=== PATIENT | female | born 1985 | race Caucasian/White ===

== ENCOUNTER → 2017-08-12 16:52 | Outpatient (CLI) | payer BC, SELFPAY ==
--- NOTE | 2017-08-12 16:38 | LES_PTH ---
PATIENT: ESTEFANIA MAHARAJ LOC: [facility] U#:[id number] AGE/SX: 39/F ROOM: RE08/12/[address]: Dr. 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 Negative for malignancy. SJ:toy 08/16/17 MICROSCOPIC DESCRIPTION Slides are reviewed. GROSS DESCRIPTION Received in fixative is one container labeled with the patient's name and designated left ear. The specimen consists of a piece of boone-white skin measuring 0.3 x 0.3 x 0.1 cm. The specimen is totally submitted in one cassette. / SJ:rg 08/15/17 TC:5 [facility]: [id number]
== END ==
PROVIDERS: Visit Provider Otolaryngology
DX: D48.5 Neoplasm of uncertain behavior of skin (principal)
CPT/HCPCS: 88305

== ENCOUNTER → 2019-04-09 15:30 | Outpatient (CLI) | payer BC, SELFPAY ==
--- NOTE | 2019-04-09 15:30 | MASS_PTH ---
PATIENT: ESTEFANIA MAHARAJ LOC: [facility] U#:[id number] AGE/SX: 39/F ROOM: RE04/09/[address]: Dr. Charlie Rogers MD : 1985 BED: DIS: SPEC #: [id number] RECD: 04/09/19 17:00 STATUS: ABUNDIO CATY #: [id number] NED: 04/09/19 15:[address]: Charlie Rogers DEPT: SURGICAL PATHOLOGY RECD BY: Laxmi Nolan Tissues: Ear, NOS Procedures: Surgery Specimen Level IV HEADER OPERATION: Biopsy PRE-OP DIAGNOSIS: Left ear mass TISSUE SUBMITTED: Left ear mass MICROSCOPIC DIAGNOSIS Left ear mass, biopsy: Consistent with squamous papilloma. Negative for malignancy. SJ:toy 04/11/19 COMMENT Please make reference to previous specimen ([id number]), left ear lesion, biopsy with diagnosis of focal changes suggestive of squamous papilloma and hyperkeratosis. MICROSCOPIC DESCRIPTION Slides are reviewed. GROSS DESCRIPTION Received in fixative is one container labeled with the patient's name and designated left ear mass. The specimen consists of one irregular fragment of light boone soft tissue that measures 0.2 x 0.2 x 0.1 cm. The specimen is totally submitted in one cassette. / AM:toy 04/10/19 TC:1 [facility]: [id number]
== END ==
PROVIDERS: Referring Provider Otolaryngology; Visit Provider Otolaryngology
DX: R22.0 Localized swelling, mass and lump, head (principal)
CPT/HCPCS: 88305

== ENCOUNTER → 2020-12-04 10:29 | Outpatient (CLI) | payer BC, SELFPAY | PROVIDERS: Referring Provider Physician Assistant; Visit Provider Physician Assistant | DX: U07.1 COVID-19 (principal) | CPT/HCPCS: 87635; U0005; U0003 ==

== ENCOUNTER → 2024-12-10 | Outpatient (CLI) | payer BC, SELFPAY ==
--- OUTSIDE RECORDS SUMMARY | 2024-12-12 21:22 | XMS RPT_ITS | CCD ---
Author Organization [facility] Care Team Providers Care [employer] Name Role Phone SYLVIA ASHRAF MD Admitting Unavailable LATOUF, SYLVIA MISHRA Attending Unavailable LATOUSanam, SYLVIA MISHRA Primary Care Unavailable LATOUF, SYLVIA [...] UNKNOWN Consulting Unavailable PROVIDER, UNKNOWN Consulting Unavailable Charlie Rogers Referring Unavailabl Charlie Sanches Attending Unavailabl e Care Physician, No Primary Primary Care Unava ilable Care Physician, No Primary Primary Care Unava ilable Charlie Rogers Referring Unavailabl e Charlie Rogers Attending Unavailabl e Allergies Allergy Classification Reported Allergen(s) Allergy Type Date of Onset Reaction(s) Facility (1 source) Clindamycin Drug Allergy 12-04-2020 [facility] Rep[facility] Problems Problem Classification Problem Date Documented Date Episodic/Chronic Disorders of lipid metabolism (2 sources) Pure hypercholesterolemia , unspecified; Translations: [Pure hypercholesterolemia , unspecified] Onset: 12-31-2019 Essential hypertension (1 source) Essential (primary) hypertension; Translations: [Essential (primary) hypertension] Onset: 01-02-2020 Chronic Other nutritional; endocrine; and metabolic disorders (1 source) Lipoprotein deficiency; Translations: [Lipoprotein deficiency] Onset: 12-31-2019 Chronic Thyroid disorders (2 sources) Hypothyroidism, unspecified; Translations: [Hypothyroidism, unspecified] Onset: 12-31-2019 Chronic Unclassified (1 source) Cranial cerebrospinal fluid leak, spontaneous; Translations: [Cranial cerebrospinal fluid leak, spontaneous] Onset: 12-10-2024 Results Test Name Value Interpretation Reference Range Facil ity Cerebral Spinal Fluid Cultur nilesh 12-11-2024 [facility] CSF RHINORRHEA RESULTS CALLED TO NURSE 12/11/24 1221 VS. Staphylococcus species Amount Growth Rare Gram positive graeme Gram positive graeme Normal [facility] Comment on above: Performed By: #### M 100.2300, M100.1999 #### [facility] [address] [place], [address] Gram Stainon 12-11-2024 GS CSF RHINORRHEA Centrifuged Specimen? Culture performed on centrifuged specimen Gram Stain No organisms seen Very Rare White Blood Cells Normal [facility] Comment on above: Performed By: #### M 100.2300, M100.1999 #### [facility] [address] [place], [address] Sinus/Facial Boneon 12-11-19 Sinus/Facial Bone [facility] [address] [place] [address] Sinus/Facial Bone MR#: [id number] Acct: [id number] Name: ESTEFANIA MAHARAJ Rep #: [id number] : 1985 F 39 From: Chencho davis MD PCP: Care Physician,No Primary Status: REG CLI Study: Sinus/Facial Bone Date of Exam: 12/10/24 Exam# [id number] Ordering Dr: Charlie Rogers MD PROCEDURE: SINUS/FACIAL BONE 12/10/2024 REASON FOR EXAM: CRANIAL CEREBROSPINAL FLUID LEAK, SPONTANEOUS TECHNIQUE: Procedure Code: CTSI Modality: CT Procedure: SINUS/FACIAL BONE Coronal and Sagittal reconstruction series were provided. One or more dose reduction techniques were used (e.g., Automated exposure control, adjustment of the mA and/or kV according to patient size, use of iterative reconstruction technique). RADIATION DOSE SUMMARY: CTDlvol: 33.06 mGy DLP: 833.85 mGycm COMPARISON: None FINDINGS: Frontal: Unremarkable. Ethmoid: Unremarkable Sphenoid: Air-fluid level is seen in the left sphenoid sinus. Maxillary: Unremarkable Turbinates: Unremarkable Nasal Septum: Nasal septal deviation towards the right side of the midline. Mastoids/Middle Ears: Unremarkable CT/Sinus/Facial Bone IMPRESSION: Air-fluid level seen in the left sphenoid sinus. Reading Location: [place] [address] CC: Dr. 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: Signed Normal [facility] Encounters Encounter Date Encounter Type Care Provider Facility Start: 12-10-2024 ambulatory Charlie Rogers Fa cility:[facility] Start: 01-02-2020 Patient encounter procedure SYLVIA MISHRA [facility] Start: 12-31-2019 Encounter for genera l adult medical examination without abnormal findings [facility] Start: 12-31-2019 Patient encounter procedure SYLVIA MISHRA [facility] Start: 11-08-2019 Patient encounter procedure SYLVIA MISHRA [facility] Payers Date Payer Category Payer Self-pay 2014 Unknown [id number] 1985 Unknown [id number] 2.16.84 [id number] 1985 Unknown [id number] 2.16.84 [id number] 1985 Unknown [id number] 2.16.84 [id number] 1985 Unknown [id number] 2.16.84 [id number] Unknown [id number] 2.16.8 [id number] Unknown [id number] 2.16.8 [id number] Summary Purpose Family History No Family History Records FoundNo Family History Records Found Advance Directives No Advanced Directives Records FoundNo Advanced Directives Records Found Additional Source Comments INFORMATION SOURCE (unrecogn ized section and content) DATE CREATED AUTHOR 01/02/[address] [facility] DATE CREATED AUTHOR AUTHOR'S ORGANIZ ATDAWN 12/12/2024 [facility] FOR RECORDS PERTAINING TO PATIENTS WHO ARE [...] BE BASED ON THE PRIMARY CLINICAL RECORDS. [employer] [facility]. provides no warranty or guarantee of the accuracy or completeness of information in this document.
== END | disposition home or self-care (01) ==
LOC: LAB 12-12 15:45
PROVIDERS: Referring Provider Otolaryngology; Visit Provider Otolaryngology
DX: G96.00 Cerebrospinal fluid leak, unspecified (principal)
CPT/HCPCS: 87070; 87205

== ENCOUNTER → 2024-12-10 | Outpatient (CLI) | payer BC, SELFPAY ==
--- NOTE | 2024-12-10 12:00 | CT_ITS ---
PROCEDURE: SINUS/FACIAL BONE 12/10/2024 REASON FOR EXAM: CRANIAL CEREBROSPINAL FLUID LEAK, SPONTANEOUS TECHNIQUE: Procedure Code: CTSI Modality: CT Procedure: SINUS/FACIAL BONE Coronal and Sagittal reconstruction series were provided. One or more dose reduction techniques were used (e.g., Automated exposure control, adjustment of the mA and/or kV according to patient size, use of iterative reconstruction technique). RADIATION DOSE SUMMARY: CTDlvol: 33.06 mGy DLP: 833.85 mGycm COMPARISON: None FINDINGS: Frontal: Unremarkable. Ethmoid: Unremarkable Sphenoid: Air-fluid level is seen in the left sphenoid sinus. Maxillary: Unremarkable Turbinates: Unremarkable Nasal Septum: Nasal septal deviation towards the right side of the midline. Mastoids/Middle Ears: Unremarkable CT/Sinus/Facial Bone IMPRESSION: Air-fluid level seen in the left sphenoid sinus. Reading Location: [place] [address]
--- OUTSIDE RECORDS SUMMARY | 2024-12-10 21:52 | XMS RPT_ITS | CCD ---
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 Role Phone SYLVIA ASHRAF MD Admitting Unavailable LATOUF, SYLVIA MISHRA Attending Unavailable LATOUF, SYLVIA MISHRA Primary Care Unavailable LATOUF, SYLVIA MISHRA Consulting Unavailable PROVIDER, UNKNOWN Consulting Unavailable PROVIDER, UNKNOWN Consulting Unavailable PROVIDER, UNKNOWN Consulting Unavailable LATOUF, SYLVIA MISHRA Admitting Unavailable LATOUF, SYLVIA MISHRA Attending Unavailable LATOUF, SYLVIA MISHRA Primary Care Unavailable LATOUF, SYLVIA MISHRA Consulting Unavailable PROVIDER, UNKNOWN Consulting Unavailable PROVIDER, UNKNOWN Consulting Unavailable PROVIDER, UNKNOWN Consulting Unavailable LATOUF, SYLVIA MISHRA Admitting Unavailable LATOUF, SYLVIA MISHRA Attending Unavailable LATOUF, SYLVIA MISHRA Primary Care Unavailable LATOUF, SYLVIA MISHRA Consulting Unavailable PROVIDER, UNKNOWN Consulting Unavailable PROVIDER, UNKNOWN Consulting Unavailable PROVIDER, UNKNOWN Consulting Unavailable LATOUF, SYLVIA MISHRA Admitting Unavailable LATOUF, SYLVIA MISHRA Attending Unavailable LATOUF, SYLVIA MISHRA Primary Care Unavailable LATOUF, SYLVIA MISHRA Consulting Unavailable PROVIDER, UNKNOWN Consulting Unavailable PROVIDER, UNKNOWN Consulting Unavailable PROVIDER, UNKNOWN Consulting Unavailable Problems Problem Classification Problem Date Documented Da te Episodic/Chronic Disorders of lipid metabolism (2 sources) Pure hypercholesterolemi a, unspecified; Translations: [Pure hypercholesterolemi a, unspecified] Onset: 12-31-2019 Essential hypertension (1 source) Essential (primary) hypertension; Translations: [Essential (primary) hypertension] Onset: 01-02-2020 Chronic Other nutritional; endocrine; and metabolic disorders (1 source) Lipoprotein deficiency; Translations: [Lipoprotein deficiency] Onset: 12-31-2019 Chronic Thyroid disorders (2 sources) Hypothyroidism, unspecified; Translations: [Hypothyroidism, unspecified] Onset: 12-31-2019 Chronic Results Test Name Value Interpretation Reference Range Facil ity COVID 19, ANDREY WC(RT COLLECT )on 12-04-2020 SARS-CoV-2 (COVID-19) RNA ANDREY+probe Ql (Unsp spec) Detected Normal Not Detect [facility] Comment on above: Order Comment: Reason for Exam: covid sx Result Comment: Norm al Reference Range: Not Detected Method:(RT-PCR) real-time reverse transcriptase PCR Luminex NELLI Instrument *The Food and Drug Administration (FDA) has issued an Emergency Use Authorization (EAU) for the NELLI SARS-CoV-2 Assay for the rapid detection of the virus that causes COVID-19. This test has been validated, but the FDAs independent review of this validation is pending. *Negative results do not preclude infection and should not be used as the sole basis for treatment or patient management. Optimum specimen types and timing for peak viral levels during infections caused by SARS-CoV-2 have not been determined. Collection of multiple specimens from the same patient may be necessary to detect the virus. The possibility of a false negative result should be considered if the patient has clinical presentation or has had recent exposure. Performed By: #### L [id number] #### [facility] [address] [place], [place], [address] Urgent Care Visit Reporton 0 12-04-2020 Urgent Care Visit Report [facility] [address] [place], [place] [address] OFFICE VISIT Date of Service: 12/04/20 MR#: [id number] Acct: [id number] Name: ESTEFANIA MAHARAJ Rep #: [id number] : 1985 Provider: PANCHO dunham Age/Sex: 35/F Location: [facility] Status: Signed Intake Vital Signs 12/04/20 08:41 Height 5 ft 10.5 in Weight: 247 lb BMI 34.9 BP 126/86 H Blood Pressure Location Lt brachial Position Sitting Respiration 15 Pulse 78 Pulse Source Monitor Temp 96.7 F L Temp Source Temporal Pulse Oximetry (%) 98 Oxygen Delivery Method room air Intake Visit Reasons: COUGH, RUNNY NOSE,XP 2 COVID,SORE THROAT Allergies clindamycin Allergy (Intermediate, Verified 12/04/20 08:43) rash Medications acetaminophen 325 mg capsule 325 mg PO ONCE PRN 12/04/20 [History Confirmed 12/04/20] atenolol 50 mg tablet 50 mg PO DAILY 12/04/20 [History Confirmed 12/04/20] levothyroxine 88 mcg tablet 88 mcg PO DAILY 12/04/20 [History Confirmed 12/04/20] [facility] Medical History (Updated 12/04/20 @ 09:03 by Yusuf DELEON, PA) Encounter for screening for COVID-19 Surgical History (Updated 12/04/20 @ 08:44 by Jennifer Marina RN) H/O tubal ligation Family History (Updated 12/04/20 @ 08:44 by Jennifer Marina RN) Other Heart disease HPI HPI Details: ESTEFANIA MAHARAJ, is a 35 F who presents to the office today for COVID-19 screening. 2-day history of chills, cough, myalgias, headache, sore throat, runny nose. Previously received COVID-19 vaccine series. Non-smoker. Positive exposure to daughter's boyfriend who was diagnosed with COVID-19. No blhk-fmb-bopdpha products taken to assist with symptoms. No other associated symptoms and no other alleviating/aggravating factors. ROS Const Constitutional: No other (As above) Exam Const General: cooperative, healthy appearing, comfortable and no acute distress Nutritional Appearance: well nourished Orientation: alert, awake and oriented x3 HENMT Head: normal to inspection Ears: hearing grossly normal bilaterally, external ears normal, TM's normal bilaterally and EAC's normal Nose: external nose normal, nares normal, septum normal and nasal discharge clear Face and sinus: normal facial exam, sinuses nontender and face symmetric Mouth: oral mucosae normal, lip normal, tongue normal and oropharynx normal Teeth and gingiva: dentition normal and gingiva normal Throat: posterior oropharynx normal, tonsils normal, uvula midline and no postnasal drainage Eyes General: appearance normal, both eyes and all related structures Neck Neck: normal visual inspection, full ROM, no lymphadenopathy, no meningeal signs and supple Neck mass: No Thyroid: thyroid normal Lymphatic: no lymphadenopathy noted Chest Chest palpation inspection: normal inspection of the chest Resp Effort Inspection: normal respiratory effort, able to speak in complete sentences, symmetric chest movement and cough Quality of cough: wet (Nonproductive in office today) Auscultation: Bilateral: Clear to Auscultation Cardio Palpation: normal PMI Rate: regular rate Rhythm: regular rhythm Heart Sounds: S1 normal, S2 normal, no gallops, no murmurs and no rubs Pulses: radial pulses present GI Inspection: normal to inspection Palpation: soft and no hepatosplenomegaly Skin General: no rashes or lesions noted Neuro General: patient alert, patient awake, patient oriented x3 and gait normal Cognition: normal cognition Speech: speech normal Gait: normal gait Motor: muscle tone normal throughout Sensory Exam: no sensory deficits noted Extrem General: normal to inspection Psych Appearance: grossly normal Mental Status: mental status grossly normal Mood: congruent mood Affect: normal affect Speech and Movement: speech and movement normal Attitude: cooperative Thought Process: normal Thought Content: normal Judgment: judgment good Coding Level of Care Code Off vis,new,level 3 Diagnoses Encounter for screening for COVID-19 Z11.52 Assessment and Plan Assessment and Plan (1) Encounter for screening for COVID-19: Status: Acute Orders: Orders: COVID 19, PCR [facility](RT COLLECT) Today Z11.52 Plan - Yusuf Clements PA, PA: Nasopharyngeal swab for COVID-19 obtained for send out. Supportive measures as reviewed in office today. Follow-up with PCP in 7 to 10 days should symptoms not improve, ED sooner should symptoms only worsen or any other concerns develop. Patient states acknowledging understanding all the above. This note was generated with Minka dictation software. It may contain incorrect words, spelling, and punctuation that were not noted in checking the note before signing. 12/04/20902 Date Yusuf Clements (more content not included)... Normal [facility] Encounters Encounter Date Encounter Type Care Provider Facility Start: 01-02-2020 Patient encounter procedure [facility] Start: 12-31-2019 Encounter for genera l adult medical examination without abnormal findings [facility] Start: 12-31-2019 [facility] Start: 11-08-2019 Patient encounter procedure [facility] Payers Date Payer Category Payer Unknown [id number] 2.16.84 [id number] 1985 Unknown [id number] 2.16.84 [id number] 1985 Unknown [id number] 2.16.84 [id number] 1985 Unknown [id number] 2.16.84 [id number] Unknown [id number] Summary Purpose Family History No Family History Records FoundNo Family History Records Found Advance Directives No Advanced Directives Records FoundNo Advanced Directives Records Found Additional Source Comments INFORMATION SOURCE (unrecogn ized section and content) DATE CREATED AUTHOR 01/02/2020 [facility] DATE CREATED AUTHOR AUTHOR'S TIMO ATDAWN 12/12/2020 [facility] FOR RECORDS PERTAINING TO PATIENTS WHO ARE OR HAVE BEEN ENROLLED IN A CHEMICAL DEPENDENCY/SUBSTANCEABUSE PROGRAM, SOME INFORMATION MAY BE OMITTED. This clinical summary was aggregated from multiple sources. Caution should be exercised in using it in the provision of clinical care. This summary normalizes information from multiple sources, and as a consequence, information in this document may materially change the coding, format and clinical context of patient data. In addition, data may be omitted in some cases. CLINICAL DECISIONS SHOULD BE BASED ON THE PRIMARY CLINICAL RECORDS. [facility] [employer] [facility]. provides no warranty or guarantee of the accuracy or completeness of information in this document.
== END | disposition home or self-care (01) ==
LOC: CT 11:30
PROVIDERS: Referring Provider Otolaryngology; Visit Provider Otolaryngology
DX: G96.01 Cranial cerebrospinal fluid leak, spontaneous (principal)
CPT/HCPCS: 70486; 87070; 87077; 87186; 87205